=== PATIENT | female | born 1950 | race Caucasian/White ===

== ENCOUNTER → 2016-11-02 | Outpatient (CLI) | payer MEDICARE ==
[2016-11-02 09:23] LABS: HEMOGLOBIN 11.3 gm/dl (12.3-15.3); RED BLOOD COUNT 3.68 M/UL (4.00-5.10); WHITE BLOOD COUNT 7.6 K/UL (4.5-11.0)
== END ==
LOC: LAB 08:43
PROVIDERS: Nurse Practitioner
DX: D64.9 Anemia, unspecified (principal); G95.9 Disease of spinal cord, unspecified
CPT/HCPCS: 36415; 80053; 85025; 86140